=== PATIENT | female | born 1950 | race Caucasian/White ===

== ENCOUNTER 2017-07-17 08:02 | Day surgery (SDC) | payer OTHER ==
[2017-07-16 13:51] VITALS: BMI 24.3
[2017-07-17] MEDS ORDERED: PROPOFOL 20 ML ONE ×3 (10:07)
[2017-07-17 10:42] VITALS: TEMP 98.2
[2017-07-17 12:15] VITALS: BP 126/60; PULSE 60
--- NOTE | 2017-07-18 13:30 | PATH ---
Surgical Pathology Report Patient Name: GONZALO NIEVES [facility]. Rec. #: [id number] /Age/Gender: 1950 (Age: 66) / F Account: [id number] Location: U-ENDOSCOPY Taken: 07/17/2017 Received: 07/17/2017 Reported: 07/18/2017 Physicians: Wilton Varghese M.D. Specimen(s) Received A: BX PROXIMAL TRANSVERSE COLON B: BX DISTAL SIGMOID INFLAMMATION Clinical History History of colon polyp Diverticulosis, polyp, distal sigmoid inflammation Final Diagnosis A. COLON, DISTAL TRANSVERSE, POLYP, BIOPSY: POLYPOID FRAGMENTS OF COLONIC MUCOSA WITH FOCAL SURFACE HYPERPLASTIC CHANGE. B. COLON, DISTAL SIGMOID, INFLAMMATION, BIOPSY: COLONIC MUCOSA WITH FOCAL ACTIVE INFLAMMATION AND FOCLA MUCOSAL HEMORRHAGE (SEE COMMENT). NO EVIDENCE OF SIGNIFICANT ARCHITECTURE DISTORTION, GRANULOMATA OR DYSPLASIA. Comment: The findings are nonspecific and may represent mild active inflammation of various etiologies including infections, drug/toxin injury or peridiverticular inflammation. No significant features of chronicity are seen. Vascular congestion and hemorrhage are present; however, no other characteristic features of ischemia are seen. Clinical, endoscopic correlation and followup are suggested. Electronically Signed Rufino Ellis M.D. Gross Description A. Received in formalin, labeled "biopsy distal transverse colon polyp" is a rodriguez, irregular portion of soft tissue measuring 0.2 cm in greatest dimension. The specimen is submitted in toto in one cassette. B. Received in formalin, labeled "biopsy distal sigmoid inflammation" is a rodriguez, irregular portion of soft tissue measuring 0.2 cm in greatest dimension. The specimen is submitted in toto in one cassette. [facility]/07/17/2017 [facility]/07/17/2017
== END 2017-07-17 11:50 | disposition home or self-care (01) ==
LOC: JASU-ENDO 08:02
PROVIDERS: ATTEND Internal Medicine Gastroenterology
PROC: 0DBL8ZX Excision of Transverse Colon, Via Natural or Artificial Opening Endoscopic, Diagnostic (ICD-10-PCS; principal; 2017-07-17 10:00)
DX: K59.00 Constipation, unspecified (principal); K57.30 Diverticulosis of large intestine without perforation or abscess without bleeding; K64.8 Other hemorrhoids; D12.3 Benign neoplasm of transverse colon
CPT/HCPCS: 88305-TC